=== PATIENT | female | born 1975 | race Caucasian/White ===

== ENCOUNTER 2022-11-21 05:29 | Emergency (ER) | payer OTHER ==
[~2022-11-21] VITALS: Ht 170.1 cm; Wt 2.2 kg
[~2022-11-21 05:29] MED LIST: CLARITIN10 MG PO; ZITHROMAX Z PA250 MG PO
[2022-11-21] MEDS ORDERED: NAPROSYN500 MG PO (05:56)
== END 2022-11-21 06:52 | disposition home or self-care (01) ==
LOC: ED 05:29
DX: S53.125A Posterior dislocation of left ulnohumeral joint, initial encounter (principal); F41.9 Anxiety disorder, unspecified; Z88.5 Allergy status to narcotic agent; Z88.8 Allergy status to other drugs, medicaments and biological substances; Z98.51 Tubal ligation status; Z98.890 Other specified postprocedural states; W06.XXXA Fall from bed, initial encounter; Y93.89 Activity, other specified; Y92.89 Other specified places as the place of occurrence of the external cause; Y99.8 Other external cause status